=== PATIENT | female | born 1950 | race Caucasian/White ===

== ENCOUNTER → 2016-05-11 | Outpatient (CLI) | payer OTHER | LOC: FIMAGING 10:03 | PROVIDERS: ATTEND Family Medicine | DX: Z12.31 Encounter for screening mammogram for malignant neoplasm of breast (principal); Z13.820 Encounter for screening for osteoporosis; M85.80 Other specified disorders of bone density and structure, unspecified site; E55.9 Vitamin D deficiency, unspecified; Z80.3 Family history of malignant neoplasm of breast | CPT/HCPCS: G0202 ==

== ENCOUNTER → 2016-05-31 | Outpatient (CLI) | payer OTHER | LOC: CIMAGING 13:36 | PROVIDERS: ATTEND Family Medicine | DX: S62.635A Displaced fracture of distal phalanx of left ring finger, initial encounter for closed fracture (principal) | CPT/HCPCS: 73140-PO ==

== ENCOUNTER → 2017-05-14 | Outpatient (CLI) | payer OTHER | LOC: CIMAGING 09:08 | PROVIDERS: ATTEND Family Medicine | DX: Z12.31 Encounter for screening mammogram for malignant neoplasm of breast (principal) ==

== ENCOUNTER → 2018-05-19 | Outpatient (CLI) | payer OTHER | LOC: CIMAGING 09:59 | PROVIDERS: ATTEND Family Medicine | DX: Z12.31 Encounter for screening mammogram for malignant neoplasm of breast (principal); Z80.3 Family history of malignant neoplasm of breast ==